=== PATIENT | male | born 1995 | race Two or more races ===

== ENCOUNTER 2018-07-11 07:40 | Emergency (ER) | payer SELFPAY ==
[~2018-07-11] VITALS: Ht 167.6 cm; Wt 64.0 kg
[2018-07-11] MEDS ORDERED: ONDANSETRON HCL 4MG/2ML INJ IV STA (08:55)
[2018-07-11] MEDS ORDERED: SODIUM CHLORIDE 0.9% 1,000 ML IV ONE (08:55)
[2018-07-11] MEDS ORDERED: FAMOTIDINE 20MG/2ML VIAL IV ONE (09:00)
[2018-07-11 09:05] LABS: CLARITY URINE CLEAR (CLEAR); COLOR URINE DARK YELLOW (YELLOW); KETONES URINE 3+ (NEGATIVE); LEUKOCYTE ESTERASE URINE TRACE (NEGATIVE); NITRITE URINE NEGATIVE (NEGATIVE); OCCULT BLOOD URINE NEGATIVE (NEGATIVE); PROTEIN URINE 1+ (NEGATIVE); SPECIFIC GRAVITY URINE 1.034 (1.005-1.030)
[2018-07-11 09:16] LABS: HEMATOCRIT. 51.5 % (42.0-52.0); HEMOGLOBIN. 18.5 g/dL (14.0-18.0); MEAN CORPUSCULAR HEMOGLOBIN 33.8 pg (28.0-32.0); MEAN CORPUSCULAR VOLUME 94.3 fL (80.0-94.0); MEAN PLATELET VOLUME 8.8 fl (7.4-10.4); PLATELET 170 x1000/uL (130-400); RED BLOOD CELL COUNT 5.46 mill/uL (4.7-6.1)
[2018-07-11 09:22] LABS: CHLORIDE 105 mEq/L (98-107)
[2018-07-11 09:37] LABS: *AMPHETAMINES SCREEN URINE NEGATIVE (NEGATIVE); *BARBITURATES SCREEN URINE NEGATIVE (NEGATIVE); *BENZODIAZEPINES SCREEN URINE NEGATIVE (NEGATIVE); *COCAINE SCREEN URINE NEGATIVE (NEGATIVE); METHADONE URINE SCREEN NEGATIVE (NEGATIVE); OPIATES URINE SCREEN NEGATIVE (NEGATIVE)
[2018-07-11 09:38] LABS: CANNABINOID URINE SCREEN PRESUMTIVE POSITIVE (NEGATIVE); PHENCYCLIDINE URINE SCREEN NEGATIVE (NEGATIVE)
[2018-07-11 09:59] LABS: PLATELET ESTIMATE NORMAL
[2018-07-11 10:20] VITALS: BP 121/82
== END 2018-07-11 10:25 | disposition home or self-care (01) ==
LOC: ER 07:40
DX: K29.70 Gastritis, unspecified, without bleeding (principal); E86.0 Dehydration; F12.10 Cannabis abuse, uncomplicated
CPT/HCPCS: 36415; 80053; 80305; 81003; 83690; 85025; 96361; 96374; 96375; 99284; J2405; J3490; J7030